=== PATIENT | female | born 1970 | race Two or more races ===

== ENCOUNTER 2020-12-31 11:25 | Emergency (ER) | payer OTHER ==
[~2020-12-31] VITALS: Ht 170.2 cm; Wt 87.1 kg
[2020-12-31] MEDS ORDERED: GLUMETZA500 MG (11:42)
[2020-12-31] MEDS ORDERED: GLIMEPIRIDE2 MG (11:43)
== END 2020-12-31 15:54 | disposition home or self-care (01) ==
LOC: ER 11:25
DX: T78.40XA Allergy, unspecified, initial encounter (principal); T39.315A Adverse effect of propionic acid derivatives, initial encounter; Y92.89 Other specified places as the place of occurrence of the external cause